=== PATIENT | female | born 1970 | race Caucasian/White ===

== ENCOUNTER 2016-10-08 08:29 | Day surgery (SDC) | payer MEDICAID ==
[~2016-10-08] VITALS: Ht 152.4 cm; Wt 98.0 kg
--- NOTE | ~2016-10-08 | OP ---
PATIENT NAME: LILA SALINAS MEDICAL RECORD: [id number] :74 LOCATION:[facility] ADMISSION DATE: SURGEON: JESSEE GUEVARA MD DATE OF OPERATION: 10/08/2016 PREOPERATIVE DIAGNOSIS: Symptomatic incisional hernia. POSTOPERATIVE DIAGNOSIS: Symptomatic incarcerated incisional hernias times 2. PROCEDURE: Laparoscopic incarcerated incisional hernia repairs with 8 inch x [address] mesh utilizing the Echo PS positioning system. OPERATIVE COURSE: The patient was conveyed to the operating room electively on 10/08/2016. General anesthesia was induced by the anesthesia staff. The abdomen was sterilely prepped and draped. A small skin harvinder was accomplished in the left upper quadrant. A Veress needle was inserted through the skin harvinder into the peritoneal cavity. CO2 insufflation was begun. Once a sufficient pneumoperitoneum had been achieved, a 12-mm trocar was inserted in the left upper quadrant. Under direct internal vision utilizing a television camera, two 5-mm trocars were inserted in the epigastrium. Two 5-mm trocars were inserted in the left side of the abdomen and two 5-mm trocars were inserted in the right side of the abdomen. During insertion of the Veress needle and all trocars, there appeared to have been no injury to the bowels, any intraperitoneal or retroperitoneal structures. The incarcerated contents included omentum only. This was taken down in a piecemeal fashion. Some of the omentum was placed within an Endobag retrieval device and was withdrawn through the 12-mm trocar site. Once the incarcerated contents had been completely removed, I created a prevesicular flap. I took down the anterior portion of the triangular ligament of the liver. I then hydrated and rolled up an 8 inch x 8 inch Ventralight mesh. It was advanced down through the 12-mm trocar site. I then unrolled the mesh. I chose an area between the 2 hernia defects for insertion of the laparoscopic suture passer. This was advanced into the abdomen. I grasped the tubing and brought it out through the anterior abdominal wall. I cut the tubing. I then inflated through the tubing. This flattened out the mesh. The mesh initially was kept in place utilizing the OptiFix Tacker. The herniorrhaphy was then completed utilizing circumferential SorbaFix tacks. The Echo PS positioning system was then removed in its entirety. I irrigated and aspirated. There was no bleeding. All trocars were removed and the abdomen desufflated. The skin incisions were closed with interrupted 3-0 Vicryls except at the laparoscopic suture passer incision when I closed this incision with a 4-0 Vicryl Rapide. Sterile dressing was applied. The patient was then extubated and conveyed to post-anesthesia care unit where she was in stable condition. She will be dismissed home on hydrocodone for pain. 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 [place] [place] 10/08/16 [facility] [address] [place] [address]
--- NOTE | ~2016-10-08 | HP ---
PATIENT: LILA SALINAS MEDICAL RECORD: [id number] ACCOUNT: [id number] LOCATION:[facility] : 74 ADMISSION DATE: 10/08/16 HISTORY AND PHYSICAL EXAMINATION There is a history and physical on the chart. The patient's history and physical examination is unchanged compared to when I saw her in the office. I saw her today in the holding area. We reviewed the planned operative procedure. 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
[2016-10-08] MEDS ORDERED: VITAMIN D5000 UNIT PO (10:53)
[2016-10-08] MEDS ORDERED: PROZAC10 MG PO (10:54)
[2016-10-08] MEDS ORDERED: ZANAFLEX4 MG PO (10:54)
[2016-10-08 11:06] VITALS: BP 129/79; Ht 152.4 cm; Wt 98.0 kg
[2016-10-08 11:43] LABS: HEMATOCRIT 40.4 % (36.0-48.0); HEMOGLOBIN 13.2 g/dL (12-16); MCH 31.1 pg (26.0-34.0); MCHC 32.7 g/dL (31.0-37.0); MCV 95.1 fL (80.0-100.0); MEAN PLATELET VOLUME 11.7 fL (7.4-10.4); RBC 4.25 10x6/uL (4.00-5.40); RDW 14.4 % (11.5-14.5); WBC 10.4 10x3/uL (4.8-10.8)
[2016-10-08 12:43] LABS: HCG SERUM NEGATIVE (NEGATIVE)
--- NOTE | 2016-10-08 14:57 | NUR ---
VANCOMYCIN 1GM INTO 250CC NS INFUSING ON ADMIT.
--- NOTE | 2016-10-08 17:56 | NUR ---
1600 STILL NAUSEA AND UNBLE TO VOID 1700 MED GIVEN FOR NAUSEA 1730 STILL UBALE TO VOID
--- NOTE | 2016-10-08 17:57 | NUR ---
UP TO BATHROOM VOIDED, IV DC WITH CATHER TIP INTACT
--- NOTE | 2016-10-08 18:21 | NUR ---
1800 IV DCD CATHETER INTACT. DISCHARGE INSTRUCTIONS GIVEN.
--- NOTE | 2016-10-08 18:21 | NUR ---
1821 TO HOME VIA W/C WITH FAMILY.
== END 2016-10-08 18:21 | disposition home or self-care (01) ==
LOC: D.OPS 08:29 → D.PAN 12:15 → D.OPS 12:15
PROVIDERS: Anesthesiology; Surgery
DX: K43.0 Incisional hernia with obstruction, without gangrene (principal)

== ENCOUNTER → 2017-01-12 08:58 | Outpatient (CLI) | payer MEDICAID ==
[2016-10-08 11:06] VITALS: BMI 42.2
[~2017-01-12 08:58] MED LIST: PROZAC10 MG PO; VITAMIN D5000 UNIT PO; ZANAFLEX4 MG PO
== END | disposition home or self-care (01) ==
LOC: D.MRI 01-10 15:30
DX: M25.371 Other instability, right ankle (principal)